=== PATIENT | female | born 1940 | race Caucasian/White ===

== ENCOUNTER 2021-02-02 11:48 | Inpatient (IN) ==
[2021-02-02] MEDS ORDERED: NITROGLYCERIN SL 0.4 MG TABLET SL PRN ×2 (12:31→13:42)
[2021-02-02] MEDS ORDERED: ASPIRIN 325 MG TABLET PO STA (12:31)
[2021-02-02 12:52] LABS: Basophils % 0.3 % (0.0-0.8); Eosinophils # 0.2 10*3/uL (0.0-0.87); Eosinophils % 2.4 % (0.00-10.9); Hematocrit 42.5 VOL% (35.7-47.0); Hemoglobin 12.8 GM/DL (12.0-16.0); Immature Granulocytes % 0.2 %; Immature Granulocytes Absolute 0.01 #; Lymphocytes # 2.4 10*3/uL (1.4-4.0); Lymphocytes % 35.6 % (21.3-54.2); Mean Corpuscular HGB Conc 30.1 GM/DL (32-36); Mean Corpuscular Volume 88.2 FL (87-102); Monocytes % 12.5 % (1.7-12.7); Platelet Count 289 T/CUMM (130-400); Red Blood Count 4.82 MC/CUMM (3.8-5.5); Red Cell Distribution Width 14.6 % (9.3-17.3); White Blood Count 6.6 T/CUMM (4-12)
[2021-02-02 13:16] LABS: Albumin 4.3 G/DL (3.4-5.0); Bilirubin,Total 0.6 MG/DL (0.20-1.00); Calcium 9.7 MG/DL (8.5-10.1); Osmolality,Calculated 277.4 MOS/KG (273-304); Potassium 5.3 MMOL/L (3.5-5.1); Total Protein 8.5 G/DL (6.4-8.2)
[2021-02-02] MEDS ORDERED: MORPHINE 2 MG/1 ML SYRINGE IV STA (13:17)
[2021-02-02] MEDS ORDERED: ONDANSETRON 4 MG/2 ML VIAL IV PRN (13:38)
[2021-02-02] MEDS ORDERED: ACETAMINOPHEN 325 MG TABLET PO PRN (13:38)
[2021-02-02] MEDS ORDERED: hydrALAZINE 20 MG/1 ML VIAL IV PRN (17:19)
[2021-02-02] MEDS ORDERED: carvediloL 6.25 MG TABLET PO ONE (17:29)
[2021-02-02] MEDS: ENOXAPARIN 80 MG/0.8 ML SYRINGE SUBCUT SCH (17:56)
[2021-02-02] MEDS: SODIUM CHLORIDE 0.9% 1,000 ML IV SCH (17:57)
[2021-02-02] MEDS: NITROGLYCERIN 2% OINT 1 INCH/GM PACK TOP SCH ×2 (17:57→18:15)
[2021-02-02] MEDS ORDERED: LOSARTAN 50 MG TABLET PO SCH (21:00)
[2021-02-02] MEDS ORDERED: APIXABAN 2.5 MG TABLET PO SCH (21:00)
[2021-02-02] MEDS ORDERED: carvediloL 12.5 MG TABLET PO SCH (21:00)
[2021-02-02] MEDS: carvediloL 6.25 MG TABLET PO SCH (22:17)
[2021-02-02] MEDS: ROSUVASTATIN 20 MG TABLET PO SCH (22:18)
[2021-02-02] MEDS: DOCUSATE SODIUM 100 MG CAPSULE PO SCH (22:18)
[2021-02-02] MEDS: hydrALAZINE 25 MG TABLET PO SCH (22:18)
[2021-02-03] MEDS: NITROGLYCERIN 2% OINT 1 INCH/GM PACK TOP SCH ×3 (01:20→11:08)
[2021-02-03] MEDS: ENOXAPARIN 80 MG/0.8 ML SYRINGE SUBCUT SCH (06:12)
[2021-02-03 06:46] LABS: Basophils % 0.4 % (0.0-0.8); Eosinophils # 0.2 10*3/uL (0.0-0.87); Eosinophils % 2.9 % (0.00-10.9); Hemoglobin 10.5 GM/DL (12.0-16.0); Immature Granulocytes % 0.4 %; Immature Granulocytes Absolute 0.02 #; Lymphocytes # 2.6 10*3/uL (1.4-4.0); Lymphocytes % 47.7 % (21.3-54.2); Mean Corpuscular HGB Conc 30.9 GM/DL (32-36); Mean Corpuscular Volume 88.1 FL (87-102); Mean Platelet Volume 10.3 FL (9.6-12.0); Monocytes % 12.2 % (1.7-12.7); Neutrophils % 36.4 % (38.7-73.9); Platelet Count 241 T/CUMM (130-400); Red Blood Count 3.86 MC/CUMM (3.8-5.5); Red Cell Distribution Width 14.6 % (9.3-17.3); White Blood Count 5.5 T/CUMM (4-12)
[2021-02-03 07:05] LABS: Calcium 8.3 MG/DL (8.5-10.1); Osmolality,Calculated 279.3 MOS/KG (273-304); Potassium 3.8 MMOL/L (3.5-5.1); Risk Ratio 4.36; VLDL Cholesterol 28.4 MG/DL
[2021-02-03 07:12] LABS: Albumin 3.1 G/DL (3.4-5.0); Anisocytosis Slight; Band Neutrophils 1 % (0-10); Bilirubin,Total 1.2 MG/DL (0.20-1.00); Calcium 8.5 MG/DL (8.5-10.1); Eosinophils 2 % (0-10); Lymphocytes 51 % (20-55); Osmolality,Calculated 279.3 MOS/KG (273-304); Platelet Estimate Normal; Potassium 3.8 MMOL/L (3.5-5.1); Segmented Neutrophils 37 % (50-85); Total Cells Counted 100; Total Protein 6.8 G/DL (6.4-8.2)
[2021-02-03 07:13] LABS: Ovalocytes Few
[2021-02-03] MEDS ORDERED: POTASSIUM CHLORIDE RIDER 10 MEQ/100 ML PREMIX IV PRN (07:54)
[2021-02-03] MEDS ORDERED: MAGNESIUM SULF RIDER 2 GM/50 ML PREMIX IV PRN (07:54)
[2021-02-03] MEDS ORDERED: LIDOCAINE 1% 20 ML VIAL ONE (08:27)
[2021-02-03] MEDS ORDERED: HEPARIN/NACL 0.9% 2 UNITS/ML 2,000 UNIT/1,000 ML BAG IV ONE (08:27)
[2021-02-03] MEDS ORDERED: diphenhydrAMINE CAP 25 MG CAPSULE ONE (08:37)
[2021-02-03] MEDS ORDERED: DIAZEPAM 5 MG TABLET ONE (08:38)
[2021-02-03] MEDS: carvediloL 6.25 MG TABLET PO SCH ×2 (08:42→21:53)
[2021-02-03] MEDS: PANTOPRAZOLE 40 MG TABLET PO SCH (08:42)
[2021-02-03] MEDS: hydrALAZINE 25 MG TABLET PO SCH (08:43)
[2021-02-03] MEDS: ASPIRIN EC 81 MG TABLET PO SCH (08:43)
[2021-02-03] MEDS: SODIUM CHLORIDE 0.9% 1,000 ML IV SCH (08:46)
[2021-02-03] MEDS: DOCUSATE SODIUM 100 MG CAPSULE PO SCH ×2 (08:48→21:55)
[2021-02-03] MEDS ORDERED: DIAZEPAM 5 MG TABLET PO ONE (09:00)
[2021-02-03] MEDS ORDERED: diphenhydrAMINE CAP 50 MG CAPSULE PO ONE (09:00)
[2021-02-03] MEDS ORDERED: fentaNYL 100 MCG/2 ML VIAL ONE (09:01)
[2021-02-03] MEDS ORDERED: MIDAZOLAM 2 MG/2 ML VIAL ONE (09:01)
[2021-02-03] MEDS ORDERED: ACETAMINOPHEN/CODEINE 300-30 MG TABLET PO PRN (10:02)
[2021-02-03] MEDS ORDERED: MORPHINE 2 MG/1 ML SYRINGE IV PRN (10:02)
[2021-02-03 16:10] VITALS: BP 126/60
[2021-02-03] MEDS: ROSUVASTATIN 20 MG TABLET PO SCH (21:53)
[2021-02-04 04:37] LABS: Basophils % 0.3 % (0.0-0.8); Eosinophils # 1.2 10*3/uL (0.0-0.87); Eosinophils % 11.2 % (0.00-10.9); Hematocrit 29.5 VOL% (35.7-47.0); Hemoglobin 9.4 GM/DL (12.0-16.0); Immature Granulocytes % 0.7 %; Immature Granulocytes Absolute 0.07 #; Lymphocytes # 1.8 10*3/uL (1.4-4.0); Lymphocytes % 17.4 % (21.3-54.2); Mean Corpuscular HGB Conc 31.9 GM/DL (32-36); Mean Corpuscular Volume 93.9 FL (87-102); Mean Platelet Volume 9.8 FL (9.6-12.0); Monocytes % 6.7 % (1.7-12.7); Neutrophils % 63.7 % (38.7-73.9); Platelet Count 278 T/CUMM (130-400); Red Blood Count 3.14 MC/CUMM (3.8-5.5); Red Cell Distribution Width 13.3 % (9.3-17.3); White Blood Count 10.4 T/CUMM (4-12)
[2021-02-04 04:56] LABS: Calcium 8.7 MG/DL (8.5-10.1); Osmolality,Calculated 284.4 MOS/KG (273-304); Potassium 4.7 MMOL/L (3.5-5.1)
[2021-02-04 04:58] LABS: Eosinophils 5 % (0-10); Lymphocytes 15 % (20-55); Platelet Estimate Normal; Segmented Neutrophils 77 % (50-85); Total Cells Counted 100
[2021-02-04 04:59] LABS: Hypochromasia Slight
[2021-02-04] MEDS ORDERED: APIXABAN 2.5 MG TABLET PO SCH (09:00)
[2021-02-04] MEDS: carvediloL 6.25 MG TABLET PO SCH (10:09)
[2021-02-04] MEDS: DOCUSATE SODIUM 100 MG CAPSULE PO SCH (10:09)
[2021-02-04] MEDS: PANTOPRAZOLE 40 MG TABLET PO SCH (10:10)
[2021-02-04] MEDS: ASPIRIN EC 81 MG TABLET PO SCH (10:10)
[2021-02-04] MEDS ORDERED: METHOCARBAMOL 750 MG TABLET PO SCH (15:00)
[2021-02-05] MEDS ORDERED: LOSARTAN 50 MG TABLET PO SCH (09:00)
== END 2021-02-04 13:45 | disposition home or self-care (01) | DRG 281 ==
LOC: N.EDINP 11:48 → N.ED 11:48 → N.TELES 15:33
PROVIDERS: ADMIT Internal Medicine; ATTEND Internal Medicine
PROC: CLCCHCL (ICD-10-PCS; 2021-02-03 09:15)